=== PATIENT | female | born 1995 | race Caucasian/White ===

== ENCOUNTER 2016-04-19 16:07 | Emergency (ER) | payer OTHER ==
[~2016-04-19] VITALS: Ht 175.3 cm; Wt 118.2 kg
[2016-04-19 17:05] VITALS: BP 137/82; PULSE 102; RESP 16; O2SAT 97
[2016-04-19 17:40] LABS: BASOPHILS % (AUTO) 0.4 % (0-3); EOSINOPHILS % (AUTO) 3.1 % (0-5); MONOCYTES % (AUTO) 9.3 % (4-12); Mean Corpuscular Hemoglobin 30.5 pg (27.0-35.0); Mean Corpuscular Volume 85.4 fL (81-100); NEUTROPHILS % (AUTO) 70.9 % (40-74); Platelet Count 240 bil/L (150-400)
--- NOTE | 2016-04-20 01:33 | ED.REPORT ---
HPI-General Illness Date of Service Apr 20, 2016 ED Provider: Doc,Ed MD History of Present Illness: This patient checked into triage but left without being seen but because of her complaints she had a serum hCG level drawn which was negative and a CBC which was within normal limits. Her vital signs were remarkable for a minimal tachycardia right at 100. No further treatment is recommended unless the patient returns for further evaluation. 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 Previously healthy Past Surgical History Denies Smoking History Never Smoker Social History Alcohol Use: Denies alcohol use Drug Use: Denies drug use Ambulatory Status Independent Physical Exam Vital Signs Vital Signs Date Time Temp Pulse Resp B/P Pulse Ox O2 Delivery O2 Flow Rate FiO2 04/19/16 17:05 36.3 102 16 137/82 97 Interpretation & Diagnostics Lab Results Interpretation Result Diagram: 04/19/16 1720 Test 04/19/16 17:20 White Blood Count 9.6th/mm3 (3.8-10.1) Red Blood Count 4.72mil/mm3 (3.90-5.20) Hemoglobin 14.4g/dL (12.0-15.6) Hematocrit 40.3% (35.0-46.0) Mean Corpuscular Volume 85.4fL (81-100) Mean Corpuscular Hemoglobin 30.5pg (27.0-35.0) Mean Corpuscular Hemoglobin Concent 35.7% (32.0-37.0) Red Cell Distribution Width 12.5% (12.3-15.4) Platelet Count 240bil/L (150-400) Neutrophils (%) (Auto) 70.9% (40-74) Lymphocytes (%) (Auto) 15.9% (14-46) Monocytes (%) (Auto) 9.3% (4-12) Eosinophils (%) (Auto) 3.1% (0-5) Basophils (%) (Auto) 0.4% (0-3) HCG Beta Subunit < 0.500mIU/mL Discharge & Departure Primary Impression: Patient left without being seen Disposition: LEFT WITHOUT BEING SEEN Discharge Condition Condition: Improved Referrals: Clara Ward (PCP) Dagoberto Smith MD Apr 20, 2016 01:33
== END 2016-04-19 19:37 | disposition left against medical advice (07) ==
LOC: SED 16:07
DX: Z53.21 Procedure and treatment not carried out due to patient leaving prior to being seen by health care provider (principal)